=== PATIENT | female | born 2000 | race Caucasian/White ===

== ENCOUNTER 2021-10-03 15:24 | Emergency (ER) | payer BC, SELFPAY ==
--- NOTE | ~2021-10-03 | CT_ITS ---
EXAMINATION: CTA chest PE protocol DATE: 10/03/2021 20:29 INDICATION: tachy, SOB, covid+ TECHNIQUE: Computed tomography angiography (CTA) of the chest was performed with 100 mL Omnipaque-350 intravenous contrast timed to evaluate the pulmonary arteries. Coronal maximum intensity projection 3D-reconstructions were created by the technologist. The dose-length product (DLP) was 153.70 mGy-cm. Automated exposure control and iterative reconstruction technique were employed. COMPARISON: None. FINDINGS: Study quality: Adequate. Pulmonary arteries: No pulmonary emboli detected. Thoracic aorta: Normal. Lung parenchyma and airways: Clear. Thoracic inlet, axillae and chest wall: Unremarkable. Mediastinum: Normal. Heart and pericardium: Normal. Coronary artery calcifications: Absent. Pleura: Unremarkable. Upper abdomen: No significant finding. Bones: No acute osseous finding. IMPRESSION: No CT evidence of acute pulmonary embolus. Reviewed, dictated and finalized at location K.
--- NOTE | ~2021-10-03 | XR_ITS ---
EXAMINATION: XR chest 1V portable Exam Date/Time: 10/03/2021 16:40 CDT HISTORY: COVID + CP/SOB X TODAY, NO CARDIAC HX, NO LUNG HX Comparison: None available. RESULT: Lines, tubes, and devices: None. Lungs and pleura: Clear. Cardiomediastinal silhouette: Normal. Other: No acute osseous or upper abdominal finding. IMPRESSION: No acute cardiopulmonary process. Reviewed, dictated and finalized at location K.
[2021-10-03 15:29] VITALS: BP 123/67; PULSE 138; RESP 20; TEMP 37.8; O2SAT 100
--- NOTE | 2021-10-03 16:38 | PC.NURSE ---
Spoke with mother over the phone who states the pt vapes
--- NOTE | 2021-10-03 16:56 | ECG_ITS ---
Measurements Intervals [place] Rate: 126 P: 55 OR: 117 QRS: 104 QRSD: 81 T: -7 QT: 271 QTc: 394 Interpretive Statements SINUS TACHYCARDIA WITH SHORT OR INTERVAL RIGHT AXIS DEVIATION BORDERLINE ST-T WAVE ABNORMALITY- INFERIOR LEADS ABNORMAL ECG Electronically Signed On 10-03-2021 21:17:41 CDT by Perico Sherwood D.O.
--- NOTE | 2021-10-03 16:57 | ED.URI ---
HPI - URI/Sore Throat General Chief Complaint: Upper Respiratory Infection <GILSON Max Last Filed: 10/04/21 01:13> Stated Complaint: COVID+ 10/03/21 <GILSON Max Last Filed: 10/04/21 01:13> Time Seen by Provider: 10/03/21 16:48 <GILSON Max Last Filed: 10/04/21 01:13> History of Present Illness HPI Narrative: Patient is a healthy 21-year-old female here for evaluation of chest tightness, difficulty breathing, body aches, sore throat, and generalized malaise for the past 8 hours. States that the symptoms are there all the time, denies any alleviating or exacerbating factors. Notes that her body aches are most severe in her thighs. Patient was exposed to COVID 3 days ago, she is tested every day, and she notes that her test today came back positive. She has not been vaccinated. She has not attempted any medication for her symptoms. <GILSON Max Last Filed: 10/04/21 01:13> Related Data Allergies/Adverse Reactions: Allergies Allergy/AdvReac Type Severity Reaction Status Date / Time No Known Allergies Allergy Unverified 12/18/14 10:45 <GILSON Max Last Filed: 10/04/21 01:13> Review of Systems Review of Systems: Gen.: Reports fevers and body aches Eyes: Denies eye pain or visual change ENT: Denies congestion Respiratory: Reports chest pain and shortness of breath CV: Denies chest pain or palpitations GI: Denies abdominal pain nausea, emesis or diarrhea denies burning, urgency, frequency or hematuria Musculoskeletal: Denies back pain or muscle pain Neuro: Denies numbness, tingling, weakness or focal weakness Skin: Denies rash Except as documented, all other systems reviewed and negative <GILSON Max Last Filed: 10/04/21 01:13> Exam Narrative: APPEARANCE: Anxious appearing, tearful Head: Normocephalic and atraumatic. EYES: PERRLA/EOMI, conjunctivae clear NOSE: No nasal drainage EARS: External ear normal in appearance THROAT: Oropharynx is clear. Mucous membranes are moist. NECK: Supple. No adenopathy, no masses. RESPIRATORY: Airway patent, respirations nonlabored. Clear to auscultation bilaterally, no rales, rhonchi, wheezing. CARDIOVASCULAR: Tachycardic. No murmurs, rubs, or gallops. ABDOMINAL: Normoactive bowel sounds. Soft, nontender, nondistended. No rebound tenderness or guarding. MUSCULOSKELETAL: No calf tenderness. Extremities are warm and well-perfused. Moves all extremities well. No edema. NEURO: Normal speech. No focal neurologic deficits. SKIN: Skin is warm and dry. No rashes. PSYCHIATRIC: Anxious mood. <Stella Gracia PA-C - Last Filed: 10/04/21 01:13> Course OPERATIONS INSPECTOR/PA Physician Supervision For this patient encounter, I reviewed the OPERATIONS INSPECTOR or PA documentation, treatment plan, and medical decision making <Tony Voss MD - Last Filed: 10/04/21 13:41> Vital Signs Vital signs: Vital Signs Temperature 100.0 F H 10/03/21 15:29 Pulse Rate 138 H 10/03/21 15:29 Respiratory Rate 20 10/03/21 15:29 Blood Pressure 123/67 10/03/21 15:29 Pulse Oximetry 100 10/03/21 15:29 Oxygen Delivery Room Air 10/03/21 15:29 Temperature 100.0 F H 10/03/21 15:29 Pulse Rate 111 H 10/03/21 20:51 Respiratory Rate 14 10/03/21 20:51 Blood Pressure 102/45 L 10/03/21 20:51 Pulse Oximetry 98 10/03/21 20:51 Oxygen Delivery Room Air 10/03/21 15:29 <Stella Gracia PA-C - Last Filed: 10/04/21 01:13> Vital Signs Temperature 100.0 F H 10/03/21 15:29 Pulse Rate 138 H 10/03/21 15:29 Respiratory Rate 20 10/03/21 15:29 Blood Pressure 123/67 10/03/21 15:29 Pulse Oximetry 100 10/03/21 15:29 Oxygen Delivery Room Air 10/03/21 15:29 Temperature 100.0 F H 07/16/22 15:29 Pulse Rate 111 H 10/03/21 20:51 Respiratory Rate 14 10/03/21 20:51 Blood Pressure 102/45 L 10/03/21 20:51 Pulse Oximetry 98 10/03/21 20
[2021-10-03] MEDS: ACETAMINOPHEN 500 MG TABLET 1000 MG PO (17:09)
[2021-10-03 17:21] LABS: Basophils Percent Auto 0.3 % (0.2-1.2); Eosinophils Percent Auto 0.5 % (0-4.4); Hematocrit 39.5 % (37.0-47.0); Immature Granulocyte Absolute 0.02 K/mm3 (0.00-0.031); Immature Granulocyte Percent A 0.5 % (0-0.5); Lymphocytes Absolute Auto 0.26 K/mm3 (0.9-3.2); Lymphocytes Percent Auto 6.7 % (18.3-44.2); Mean Corpuscular HGB Conc 32.9 g/dl (32-36); Mean Corpuscular Hemoglobin 29.8 pg (26-34); Mean Corpuscular Volume 90.6 fl (80-100); Mean Platelet Volume 9.6 fl (7.4-10.4); Monocytes Absolute Auto 0.3 K/mm3 (0.1-0.6); Monocytes Percent Auto 8.7 % (2.6-8.5); Neutrophils Absolute Auto 3.2 K/mm3 (1.3-6.7); Neutrophils Percent Auto 83.3 % (45.5-73.1); Platelet Count Result 196 k/mm3 (150-375); Red Blood Count 4.36 M/mm3 (4.2-5.4); Red Cell Distribution Width 12.1 % (11.5-14.5); White Blood Count 3.9 K/mm3 (4.5-10.0)
[2021-10-03 17:32] LABS: Alanine Aminotransferase 14 U/L (6-35); Albumin Level 4.4 g/dL (3.5-5.1); Alkaline Phosphatase 61 U/L (38-126); Anion Gap 7 mmol/L (8-16); Aspartate Amino Transferase 26 U/L (14-36); Bilirubin,Total 0.4 mg/dL (0.2-1.3); Blood Urea Nitrogen 9 mg/dL (7-17); Calcium 9.1 mg/dL (8.4-10.2); Carbon Dioxide 25 mmol/L (22-30); Chloride 103 mmol/L (98-107); Estimated CRCL calculation 74 ml/min; Estimated Glomerular Filt Rate > 60; Glucose 85 mg/dL (65-110); Potassium 4.1 mmol/L (3.4-5.0); Sodium 135 mmol/L (137-145)
[2021-10-03 17:38] LABS: D Dimer 0.25 ug/mL (<0.48)
[2021-10-03 17:43] LABS: Troponin I < 0.012 ng/mL (0.000-0.034)
[2021-10-03] MEDS: SODIUM CHLORIDE 0.9% IV 1,000 ML 999 ML IV CONT ×2 (17:44→19:20)
[2021-10-03 18:23] LABS: Lactic Acid Reflex 0.8 mmol/L (0.7-2.0)
[2021-10-03] MEDS: IBUPROFEN 600 MG TABLET PO (18:29)
[2021-10-03] MEDS: LORazepam (*CRX) 0.5 MG TABLET 0.25 MG PO (18:30)
[2021-10-03 19:28] VITALS: PULSE 123; O2SAT 98
[2021-10-03 20:51] VITALS: BP 102/45; PULSE 111; RESP 14; O2SAT 98
== END 2021-10-03 20:52 | disposition home or self-care (01) ==
PROVIDERS: Physician Assistant; Emergency Provider Emergency Medicine; PCP Physician Assistant Medical
DX: U07.1 COVID-19 (principal); Z28.310 Unvaccinated for COVID-19; R00.0 Tachycardia, unspecified; R94.31 Abnormal electrocardiogram [ECG] [EKG]
CPT/HCPCS: 36415; 71045; 71275; 80053; 81025; 83605; 84484; 85025; 85380; 93005; 96360; 96361; 99284; A9270; J7030; Q9967

== ENCOUNTER 2022-06-14 12:54 | Emergency (ER) | payer BC, SELFPAY ==
--- NOTE | ~2022-06-14 | CT_ITS ---
EXAMINATION: CTA chest PE protocol DATE: 06/14/2022 20:08 INDICATION: Chest pain and shortness of breath TECHNIQUE: Computed tomography angiography (CTA) of the chest was performed with 100 mL Omnipaque-350 intravenous contrast timed to evaluate the pulmonary arteries. Coronal maximum intensity projection 3D-reconstructions were created by the technologist. The dose-length product (DLP) was 159.06 mGy-cm. Automated exposure control and iterative reconstruction technique were employed. COMPARISON: 10/03/2021 FINDINGS: The pulmonary arteries are well-opacified. No pulmonary embolism is identified. No pleural effusion or pneumothorax. The lungs are free of acute opacities. No pathologically enlarged thoracic lymph nodes are identified. The heart size is normal. IMPRESSION: 1. No pulmonary embolism or acute cardiopulmonary abnormality. Reviewed, dictated and finalized at location F.
--- NOTE | ~2022-06-14 | XR_ITS ---
Clinical Indication: Chest pain PA and lateral views of the chest: Comparison: 10/03/2021 Findings: The lungs are clear, without evidence of focal consolidation or pleural effusion. Cardiome diastinal silhouette is within normal limits. Bones and soft tissues are unremarkable. Impression: Normal chest. Reviewed, dictated and finalized at location . Impression: Normal chest.
[2022-06-14 13:06] VITALS: BP 112/54; PULSE 82; RESP 18; TEMP 36.7; O2SAT 100
--- NOTE | 2022-06-14 13:08 | ECG_ITS ---
Measurements Intervals [place] Rate: 74 P: 43 PA: 126 QRS: 95 QRSD: 77 T: 62 QT: 353 QTc: 392 Interpretive Statements SINUS RHYTHM RIGHT AXIS DEVIATION BORDERLINE ECG COMPARED TO ECG 10/03/2021 17:22:15 SINUS RHYTHM NOW PRESENT Electronically Signed On 06-14-2022 13:22:14 CDT by Perico Sherwood D.O.
[2022-06-14 13:34] LABS: Basophils Percent Auto 0.5 % (0.2-1.2); Eosinophils Absolute Auto 0.1 K/mm3 (0-0.3); Eosinophils Percent Auto 2.7 % (0-4.4); Hematocrit 38.5 % (37.0-47.0); Hemoglobin 12.4 g/dL (12.0-15.0); Lymphocytes Absolute Auto 1.82 K/mm3 (0.9-3.2); Lymphocytes Percent Auto 44.7 % (18.3-44.2); Mean Corpuscular HGB Conc 32.2 g/dl (32-36); Mean Corpuscular Hemoglobin 29.7 pg (26-34); Mean Corpuscular Volume 92.1 fl (80-100); Mean Platelet Volume 9.8 fl (7.4-10.4); Monocytes Absolute Auto 0.3 K/mm3 (0.1-0.6); Monocytes Percent Auto 7.4 % (2.6-8.5); Neutrophils Absolute Auto 1.8 K/mm3 (1.3-6.7); Neutrophils Percent Auto 44.7 % (45.5-73.1); Platelet Count Result 252 k/mm3 (150-375); Red Blood Count 4.18 M/mm3 (4.2-5.4); White Blood Count 4.1 K/mm3 (4.5-10.0)
[2022-06-14 13:43] LABS: INR 1.1; Prothrombin Time 13.3 Seconds (11.1-14.7)
[2022-06-14 13:44] LABS: Partial Thromboplastin Time 28.8 SECONDS (22.3-36.8)
[2022-06-14 13:50] LABS: Alanine Aminotransferase 15 U/L (6-35); Albumin Level 3.8 g/dL (3.5-5.1); Alkaline Phosphatase 69 U/L (38-126); Anion Gap 7 mmol/L (8-16); Aspartate Amino Transferase 21 U/L (14-36); Bilirubin,Total 0.6 mg/dL (0.2-1.3); Blood Urea Nitrogen 9 mg/dL (7-17); Calcium 8.5 mg/dL (8.4-10.2); Carbon Dioxide 25 mmol/L (22-30); Chloride 104 mmol/L (98-107); Estimated CRCL calculation 105 ml/min; Estimated Glomerular Filt Rate > 60; Glucose 93 mg/dL (65-110); Lipase 64 U/L (23-300); Potassium 4.1 mmol/L (3.4-5.0); Sodium 136 mmol/L (137-145)
[2022-06-14 13:54] LABS: Troponin I < 0.012 ng/mL (0.000-0.034)
[2022-06-14 16:24] VITALS: BP 102/53; PULSE 79; RESP 18; O2SAT 100
[2022-06-14 17:01] LABS: Troponin I < 0.012 ng/mL (0.000-0.034)
[2022-06-14 17:30] VITALS: BP 93/59; PULSE 77; RESP 16; O2SAT 100
--- NOTE | 2022-06-14 17:57 | ED.CHESTPAIN ---
HPI - Chest Pain General Chief Complaint: Chest Pain Stated Complaint: Pain Time Seen by Provider: 06/14/22 17:33 Source: RN notes reviewed History of Present Illness HPI narrative: Patient presents emergency department from home for chest pain. Patient states chest pain began yesterday morning. The pain is located in the midsternal chest and is described as sharp and stabbing in nature. States the pain goes through into her back and then goes down her right arm. States the pain is worse with swallowing and deep inspiration. States the pain has been constant since yesterday morning. She denies any fevers or chills she denies any shortness of breath denies any abdominal pain nausea vomiting diarrhea or any other symptoms. States she has not taken anything for the symptoms Related Data Home Medications Medication Instructions Recorded Confirmed cholecalciferol (vitamin D3) 50 50 mcg PO DAILY 04/09/22 04/09/22 mcg (2,000 unit) capsule magnesium 250 mg tablet 250 mg PO DAILY 04/09/22 04/09/22 mecobalamin (vitamin B12) 1,000 2,000 mcg PO DAILY 04/09/22 04/09/22 mcg chewable tablet Allergies Allergy/AdvReac Type Severity Reaction Status Date / Time latex Allergy Redness of Verified 06/14/22 17:35 Skin benzonatate AdvReac GI upset Verified 06/14/22 17:35 Review of Systems Review of Systems: Gen.: Denies fevers or chills ENT: Denies congestion Respiratory: Denies shortness of breath or cough CV: see HPI GI: Denies abdominal pain nausea, emesis or diarrhea Musculoskeletal: Denies back pain or muscle pain Neuro: Denies numbness, tingling, weakness or focal weakness Skin: Denies rash Except as documented, all other systems reviewed and negative [facility] Past Medical History Medical History Anxiety Headache Social History Social History Smoking status: Current some day smoker Tobacco type: e-cigarettes/vaping Alcohol intake: current Drinks per week: 2 Substance use: never Substance use type: does not use Lack of Transportation: No Living arrangements: with family Occupation/Education: student Gender identity (if verbalized by the patient): Female Exam Narrative: APPEARANCE: No acute distress, nontoxic, resting in bed EYES: EOMI HEENT: Normocephalic, atraumatic, OMM RESPIRATORY: No respiratory distress Clear to auscultation bilaterally with no rhonchi wheezing or rales. CARDIOVASCULAR: Regular rate and rhythm without murmurs rubs or gallops. ABDOMINAL: Soft, nontender, nondistended, no rebound or guarding MUSCULOSKELETAl: Moves all extremities. No clubbing, cyanosis or edema. Back: Tender to palpation of the right paravertebral muscles in the region of T4 and 5 with corresponding chest wall pain in the same rib region pain increased with deep inspiration NEURO: Awake and alert. Following commands, speech normal, no focal deficits SKIN:: Warm, dry. No rashes lesions or abrasions PSYCHIATRIC: Normal affect/mood, Course Course Emergency Course: Patient states that pain is greatly improved following GI cocktail states he is ready for discharge Discussed with patient results of workup and diagnosis. Discussed need for follow-up with primary care, proper use of medication, and reasons to return to the emergency department. Patient understands and agrees to current treatment plan Vital Signs Vital signs: Vital Signs Temperature 98.1 F 06/14/22 13:06 Pulse Rate 82 06/14/22 13:06 Respiratory Rate 18 06/14/22 13:06 Blood Pressure 112/54 L 06/14/22 13:06 Pulse Oximetry 100 06/14/22 13:06 Oxygen Delivery Room Air 06/14/22 13:06 Temperature 98.1 F 06/14/22 13:06 Pulse Rate 77 06/14/22 17:30 Respiratory Rate 16 06/14/22 17:30 Blood Pressure 93/59 L 06/14/22 17:30 Pulse Oximetry 100 06/14/22 17:30 Oxygen Delivery Room Air 06/14/22 17:38
[2022-06-14 18:00] LABS: D Dimer < 0.27 ug/mL (<0.48)
[2022-06-14 20:01] LABS: Troponin I < 0.012 ng/mL (0.000-0.034)
[2022-06-14 20:52] VITALS: BP 104/62; PULSE 89; RESP 16; TEMP 36.9; O2SAT 100
[2022-06-14] MEDS: FAMOTIDINE 20 MG/2 ML VIAL IV PUSH (20:58)
[2022-06-14] MEDS: ONDANSETRON INJ 4 MG/2 ML VIAL IV PUSH (21:04)
== END 2022-06-14 21:10 | disposition home or self-care (01) ==
PROVIDERS: Emergency Medicine; Emergency Provider Emergency Medicine; PCP Physician Assistant Medical
DX: R07.89 Other chest pain (principal); F17.290 Nicotine dependence, other tobacco product, uncomplicated; R94.31 Abnormal electrocardiogram [ECG] [EKG]
CPT/HCPCS: 36415; 71046; 71275; 80053; 81025; 83690; 84484; 85025; 85380; 85610; 85730; 93005; 96374; 96375; 99284; J2405; Q9967

== ENCOUNTER 2025-01-01 11:35 | Outpatient (RCR) | payer BC, SELFPAY ==
[2025-01-03 13:09] LABS: Pancreatic Elastase, Fecal >800 (>200)
[2025-01-04 00:06] LABS: Calprotectin, Fecal 21 ug/g (0-120)
== END 2025-01-01 11:36 | disposition home or self-care (01) ==
LOC: ANHLAB 11:35
PROVIDERS: PCP Physician Assistant Medical; Visit Provider Nurse Practitioner
DX: R10.13 Epigastric pain (principal); R68.81 Early satiety; K92.89 Other specified diseases of the digestive system
CPT/HCPCS: 82653; 83993; 87045; 87046; 87177; 87427

== ENCOUNTER 2025-01-31 01:39 | Day surgery (SDC) | payer BC, SELFPAY ==
[2025-01-21 10:55] VITALS: BMI 23.1
--- OUTSIDE RECORDS SUMMARY | 2025-01-31 01:41 | XMS_ITS | Data Portability ---
Author Organization [facility] [place] [facility], [id number] Address [address] [place] [address] Assessment No assessment recorded. Plan of Treatment Reminders Order Date Submit Date Provider Last Modified By Organization Details Last Modified Time Details Appointments ANNUAL- EST 15 2025 09:45A M MICHAEL YATES CNM Not available Not available Not available Lab None recorded . Referral None recorded . Procedures None recorded . Surgeries None recorded . Imaging None recorded . Medication Orders Tri-Spri ntec (28) 0.18 mg(7)/0. 215 mg(7)/0. 25 mg(7)-0. 035 mg tablet 2024 025 [id number], [address], [place], [id number], 05/30/2024 12:26:52 Patient TargetsNo targets recorded. Patient InstructionsNo instructions recorded. Reason for Referral None Reported. Problems Name Problem SNOMED Code Status Onset Date Resolution Date Notes Provider Name and Address Organization Details Recorded Time Anxiety state 283655441 Active Anxiety Disorder , Generali zed, Problem Code: 300.00; Problem Code Type: ICD-9; Not Available [facility] 12:57:15 Anxiety 86018042 Active 2024 Mi norton [facility] [place] 09:27:34 Migraine 18092965 Active 2024 [place] 09:27:42 Problem Notes None recorded. Procedures Surgical History Date Name Laterality Status Provider Name and Address Organization Details Recorded Time 05/06/2023 Date of Last Pap Smear completed [facility] 05/29/2024 09:28:12 Imaging Results None recorded. Procedure Notes None recorded. Medical Equipment None Reported. Allergies Allergen ID Allergen Name Allergen Category Reaction Reaction Severity Criticality Documentation Date Start Date Code Code System Note Provider Name and Address Organization Details Recorded Time 784834 latex environme nt,medica tion rash Not available Not available 05/29/2024 33454 91 [facility] 09:26:59 Medications Name Sig Start Date Stop Date Status Note LastModified by Organization Details LastModified Time azithromyci n 250 mg tablet TAKE 2 TABLETS BY MOUTH TODAY THEN 1 TABLET DAILY FOR 4 DAYS 05/30 completed Not Available Not Available Not Available triamcinolo ne acetonide 0.1 % lotion APPLY TOPICALLY TO THE AFFECTED AREA TWICE DAILY 05/30 completed Not Available Not Available Not Available doxycycline hyclate 100 mg tablet TAKE 1 TABLET BY MOUTH TWICE DAILY 05/30 completed Not Available Not Available Not Available Tri-Sprinte c (28) 0.18 mg(7)/0.215 mg(7)/0.25 mg(7)-0.035 mg tablet one tablet daily 2024 active Not Available Not Available Not Avai lable Vitals Date Recorded Body weight Body mass index (BMI) Body height Systolic And Diastolic Provider Name and Address Organization Details Last Updated DateTime 05/30/2024 60649.82 g 22.5 kg/m2 160.66 cm 120/70 mm[Hg] Mi [facility] 05/30/2024 12:13:09 Social History Question Answer Notes LastModified by Organizat ion Details LastModified Time Tobacco Smoking Status Current Every Day Smoker Note: vape; Screening : 2 Not Available [facility] 07/19/2024 17:11:06 Do You Have An Advance Directive? No Information not available 05/30/2024 How Many Years Have You Consumed Alcohol? 8 Information not available 05/30/2024 What Is Your Level Of Caffeine Consumption? Moderate Information not available 05/30/2024 What Type Of Diet Are You Following? REGULAR Information not available 05/30/2024 What Is Your Relationship Status? Single Information not available 05/29/2024 Sex: Unknown Functional Status Question Answer Note LastModified by Organizat ion Details LastModified Time Do you use any illicit or recreational drugs? No Information not available 07/19/2024 What is your level of alcohol consumption? Moderate Information not available 05/30/2024 Are you currently employed? 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 Moderate SocialHistor yQuestion: 'Moderate Amount of Exercise (1-3 times weekly)'; Information not available 07/19/2024 Mental Status None recorded. Family History Relationship Description Onset Age of this Age Resolved Age Notes LastModified by Organization Details LastModified Time Maternal Grandfather Heart disease cr[place] Not available 2024 09:29:55 Mother Kidney disease crud[place] Not available 2024 12:13:14 Unspecified Relation Diabetes mellitus [place] Not available 2024 12:13:14 Unspecified Relation Malignant neoplastic disease Cancer M aunt - breast Relati ve: 'Aunt' ; Not available 07/19/2024 17:47:31 Mother Kidney stone Kidney Stones Not available 07/19/2024 17:47:31 Notes:Cancer: Aunt Medical History Condition Response Psych- Anxiety Disorder Y Cancer- Genetic screening ID-Other Y Neurology- Headaches/Migraines Y Gynecological History Statement/Question Response 13-14 History of PCOS N Flow Moderate History of Fibroids N Date of LMP 05/24/2024 History of Infertility N History of Vulvar Dysplasia N History of Cervical Dysplasia N Duration of Flow (days) 5-6 Age at Menarche 14 Current Control Method BCPs History of Recurrent Ovarian Cysts N Age at first intercourse 15 History of Endometriosis N Frequency of Cycle (Q days) 0 Sexually Active? Y History of Dysmenorrhea N Menses Monthly Y Date of Last Pap Smear 05/06/2023 Sexual Problems? Y History of Sexually Transmitted Infectio n N Obstetrics History GPAL:G 0 P 0 0 0 0 Type Value Living 0 Total 0 Past Encounters Encounter ID Performer Location Encounter Start Date Encounter Closed Date Diagnosis/Indication Diagnosis SNOMED-CT Code Diagnosis ICD10 Code Diagnosis IMO Codes Diagnosis Note [id number] ANA MARIA BERGER [address], MD [id number] [facility] [address] [place] [address] 05/30/2024 11:48:34 05/30/2024 12:37:05 Gynecologic examination 52175555 Z01.419 Surveillan ce of oral contraception 408463491 Z30.41 Health Concerns Section Related Observation LastModified by Organization Detai ls LastModified Time None Recorded Concern Status LastModified by Organization Details LastModified Time None Recorded Advance Directives Directive N: Payers Insurance Date Sequence Insurance Name Policy Number Policy [place] Covered Member ID [place] Member ID Guarantor Name 05/28/2024 1 [employer] [id number] Carlene Delgado [id number] Vanessa Kukevin Notes Date Note Type Note Provider Name and Address Organization Details Recorded Time 5 text/html 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 For vulvar complaints, patient reportsnone. For vaginal complaints, patient reportsnone. For gastrointestinal symptoms, patient reportsno gastrointestinal symptoms.Breast symptomsFor breast, patient reportsno breast pain,no breast lump, andno nipple discharge.ContraceptionFo r current contraception, patient reportssatisfied with current contraceptionandoral contraceptives.Endocrine symptomsFor sexual complaints, patient reportsno sexual complaints,no pain during intercourse/sexual function, andnormal libido.Psychological symptomsFor psychological symptoms, patient reportsno depressionandno anxiety.Preventative measuresFor preventive measures, patient reportsencourage self breast examination. MICHAEL YATES [facility] [address], [place], [address], [place] - [facility] 05/30/2024 12:26:51 OBGyn Episode No OBEpisode recorded.
--- OUTSIDE RECORDS SUMMARY | 2025-01-31 01:41 | XMS_ITS | Clinical Summary ---
Author Organization [facility] Address [facility] [place] [address] Care Team Providers Care Bobj Developer Name Role Phone Annamarie Walker PA-C Primary Care Provider [phone] Allergies No known active allergies Medications pantoprazole EC (PROTONIX) 20 MG tablet Take 20 mg by mouth daily. Active albuterol sulfate HFA 108 (90 Base) MCG/ACT inhaler Inhale 2 puffs into the lungs every 6 (six) hours as needed for Wheezing. 18 g 03/18/2022 Active Social History Tobacco Use Types Packs/Day Years Used Date Smoking Tobacco: Never Smokeless Tobacco: Never Tobacco Cessation:Counseling Given: Not Answered Alcohol Use Standard Drinks/Week Comments Not Currently 0 (1 standard drink = 0.6 oz pur e alcohol) Comments No Sex and Gender Information Value Date Recorded Sex Assigned at Not on file Legal Sex Female 7:59 AM CDT Gender Identity Not on file Sexual Orientation Not on file Last Filed Vital Signs Vital Sign Reading Time Taken Comments Blood Pressure 112/65 03/18/2022 3:57 PM MEDIA PRODUCTION MANAGER Pulse 104 03/18/2022 3:57 PM MEDIA PRODUCTION MANAGER Temperature 36.7 C (98 F) 03/18/2022 3:57 PM MEDIA PRODUCTION MANAGER Respiratory Rate 16 03/18/2022 3:57 PM MEDIA PRODUCTION MANAGER Oxygen Saturation 100% 03/18/2022 3:57 PM MEDIA PRODUCTION MANAGER Inhaled Oxygen Concentration - - Weight 52.2 kg (115 lb) 03/18/2022 3:57 PM MEDIA PRODUCTION MANAGER Height 160 cm (5' 3) 03/18/2022 3:57 PM MEDIA PRODUCTION MANAGER Body Mass Index 20.37 03/18/2022 3:57 PM MEDIA PRODUCTION MANAGER Plan of Treatment Health Maintenance Due Date Last Done Comments Cervical Cancer Screening Pa p Smear (Age 21 to 29) Every 3 Years 2001 Cervical Cancer Screening 2001 Annual Physical 2004 HPV Vaccines (1 - 3-dose series) 2016 Meningococcal B Vaccine (1 o f 2 - Standard) 2017 Hepatitis C 06/30/2019 DTaP, Tdap and Td Vaccines ( 1 - Tdap) 2020 Hepatitis B Vaccines (1 of 3 - 19+ 3-dose series) 2020 COVID-19 Vaccine ( - 2024-2 6 season) 2024 Influenza Adult (#1) 2024 Hepatitis A Vaccines Aged Out No long er eligible based on patient's age to complete this topic Meningococcal Vaccine Aged Out No colette devante eligible based on patient's age to complete this topic Pneumococcal Vaccine: Pediat rics (0 to 5 Years) and At-Risk Patients (6 to 49 Years) Aged Out No longer eligible b ased on patient's age to complete this topic RSV Immunizations Under 20 Months Aged Out No longer eligible based on patient's age to complete this topic Insurance Johanna LEWIS [address] Care Teams Bobj Developer Relationship Specialty Start Date End Date Annamarie Walker PA-C [address] [place] [address] [address] [place] [address] 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
[2025-01-31 08:12] VITALS: BP 130/76; PULSE 85; RESP 16; TEMP 36.9; O2SAT 100
[2025-01-31 08:17] LABS: BEDSIDEPREGUCG Negative (Negative)
[2025-01-31] MEDS: LACTATED RINGERS 1,000 ML 150 ML IV CONT (08:38)
--- NOTE | 2025-01-31 08:41 | WPDANESEPPF ---
Anes - Initial Pre Proc Eval Procedure: Operation Date: 01/31/25 09:30 Proposed Procedures p Esophagogastroduodenoscopy EGD - Armand Mathew MD Date/Time: 01/31/25 08:41 Surgeon: Armand Mathew MD Pre Op Diagnosis: Epigastric pain Patient Data Age: 24 Gender: F Height: 1.61 m Weight: 59.9 kg Last Vital Signs Temp 36.9 C 01/31/25 08:12 Pulse 85 01/31/25 08:12 Resp 16 01/31/25 08:12 BP 130/76 01/31/25 08:12 Pulse Ox 100 01/31/25 08:12 O2 Del Method Room Air 01/31/25 08:12 Allergies Allergy/AdvReac Type Severity Reaction Status Date / Time latex Allergy Redness of Verified 01/31/25 08:11 Skin benzonatate AdvReac GI upset Verified 01/31/25 08:11 Home Medications ?Medication ?Instructions ?Recorded ?Confirmed ?Type norgestimate-ethinyl estradiol 1 tablet PO DAILY #84 tabs 09/15/23 01/31/25 Rx 0.18mg/0.215mg/0.25mg-0.035mg(28)tablet (Tri-Sprintec (28)) famotidine 20 mg tablet 20 mg PO BID #60 tabs 12/19/24 01/31/25 Rx Laboratory Tests 01/31/25 08:14 POC Urine HCG, Qual Negative (Negative) Patient hx anesthesia problems: none Family hx anesthesia problems: none Results Review: All pre-operative results and documents have been reviewed as part of the pre-operative evaluation. [facility] Past Medical History Medical History Frequent headaches Anxiety Surgical History Surgical History No history of previous surgery Social History Social History (Updated 12/04/24 @ 08:23 by Eliud Mackay) Social History: 12/03/24 very confident with medical forms Smoking status: Current some day smoker Tobacco type: e-cigarettes/vaping Alcohol intake: current Drinks per week: 2 Alcohol use details: socially Substance use: never Substance use type: does not use Lack of Transportation: No Lack of Food: Never True Current Housing: I Have Housing Concerned About Future Housing: No Difficulty Paying Gas/Electric Bills: No Difficulty Paying for Meds: No Currently Unemployed: No Education: Bachelor's Degree Difficulty w/ Childcare or Family Care: No Living arrangements: with family Occupation/Education: student Gender identity (if verbalized by the patient): Female Spiritual care concerns: No Anes - Eval Final PreProcedure Day of Procedure 01/31/25 08:41 Patient weight: normal Heart: regular rate and rhythm Lungs: clear to auscultation and normal air movement Airway: Mallampati scale class II Neurological: alert and oriented Last oral intake: >/= 8 hours ASA classification: II Emergent: no Anesthetic plan: proceed Anesthesia type and monitoring: general GIVS and standard monitoring Results Review: All pre-operative results and documents have been reviewed as part of the pre-operative evaluation. Informed Consent: The patient's anesthetic plan and its attendant risks and benefits were discussed with the patient/family/POA. Questions were solicited and answers provided to the satisfaction of the patient/family/POA.
--- NOTE | 2025-01-31 08:58 | PM.HPGS ---
History of Present Illness History of Present Illness Consent: Risks, benefits, and alternatives have been discussed and questions answered. Patient agrees to proceed with procedure. Chief complaint: Epigastric pain Narrative: Vanessa Delgado is a 24 year old female here for egd because of bloating Review of Systems Review of Systems: All systems reviewed & are unremarkable except as noted in HPI and below PMFSH Past Medical History Medical History (Updated 01/31/25 @ 08:58 by Armand Mathew MD) Bloating Frequent headaches Anxiety Surgical History Surgical History No history of previous surgery Social History Social History (Updated 12/04/24 @ 08:23 by Eliud Mackay) Social History: 12/03/24 very confident with medical forms Smoking status: Current some day smoker Tobacco type: e-cigarettes/vaping Alcohol intake: current Drinks per week: 2 Alcohol use details: socially Substance use: never Substance use type: does not use Lack of Transportation: No Lack of Food: Never True Current Housing: I Have Housing Concerned About Future Housing: No Difficulty Paying Gas/Electric Bills: No Difficulty Paying for Meds: No Currently Unemployed: No Education: Bachelor's Degree Difficulty w/ Childcare or Family Care: No Living arrangements: with family Occupation/Education: student Gender identity (if verbalized by the patient): Female Spiritual care concerns: No Meds Home Medications and Allergies Home Medications ?Medication ?Instructions ?Recorded ?Confirmed ?Type norgestimate-ethinyl estradiol 1 tablet PO DAILY #84 tabs 09/15/23 01/31/25 Rx 0.18mg/0.215mg/0.25mg-0.035mg(28)tablet (Tri-Sprintec (28)) famotidine 20 mg tablet 20 mg PO BID #60 tabs 12/19/24 01/31/25 Rx Allergies Allergy/AdvReac Type Severity Reaction Status Date / Time latex Allergy Redness of Verified 01/31/25 08:11 Skin benzonatate AdvReac GI upset Verified 01/31/25 08:11 Vital Signs Vital Signs - 24 hr 01/31/25 08:12 Temperature 98.4 F Pulse Rate 85 Respiratory Rate 16 Blood Pressure 130/76 Pulse Oximetry 100 Oxygen Delivery Room Air Exam Const: General: comfortable and no acute distress HENMT: Face/Nose/Sinus: Normal nares present Eyes: General: appearance normal, both eyes and all related structures Neck: Neck: no JVD Resp: Auscultation: clear to auscultation bilaterally Cardio: Rate: regular rate Rhythm: regular rhythm GI: Inspection: non-distended GI Palp: Yes Soft to palpation Skin: General skin exam: normal color Extrem: General: normal to inspection Psych: Mental Status: mental status grossly normal Assessment and Plan Assessment and plan (1) Bloating: Code(s): R14.0 - Abdominal distension (gaseous) Status: Acute Assessment and Plan: egd with bx
--- NOTE | 2025-01-31 09:03 | S_PTH ---
PATIENT: Vanessa Delgado LOC: [facility]#:[id number] AGE/SX: 24/F ROOM: RE01/31/[address]: Armand Mathew MD : [id number] BED: DIS: 01/31/2025 SPEC #: [id number] RECD: 01/31/25 09:48 STATUS: ROSE PEARSON #: [id number] KEVIN: 01/31/25 09:[address]: Armand Mathew DEPT: [facility] Surgical RECD BY: Marina Rodriguez ENTERED: 01/31/25 09:49 SP TYPE: Surgical OTHR DR: Annamarie Walker PA-C Tissues: A - Small Bowel Bx B - Gastric Biopsy Procedures: Hematoxylin and Eosin Stain Gross and Microscopic Level 4
[2025-01-31 09:06] VITALS: BP 97/57; PULSE 66; RESP 17; O2SAT 100
[2025-01-31 09:16] VITALS: BP 100/56; PULSE 63; RESP 17; O2SAT 100
[2025-01-31 09:26] VITALS: BP 114/72; PULSE 84; RESP 24; O2SAT 100
== END 2025-01-31 09:31 | disposition home or self-care (01) ==
PROVIDERS: Anesthesiology; PCP Physician Assistant Medical; Referring Provider Nurse Practitioner; Visit Provider Internal Medicine Gastroenterology
PROC: 0DJ08ZZ Inspection of Upper Intestinal Tract, Via Natural or Artificial Opening Endoscopic (ICD-10-PCS; CPT 43239; principal; 2025-01-31 09:30)
DX: R14.0 Abdominal distension (gaseous) (principal); R10.13 Epigastric pain; F17.290 Nicotine dependence, other tobacco product, uncomplicated
CPT/HCPCS: 43239; 88305; J2003; J2704; J7120